=== PATIENT | female | born 1960 | race Caucasian/White ===

== ENCOUNTER 2016-06-08 19:34 | Emergency (ER) | payer BC ==
[2016-06-08 20:09] VITALS: BMI 26.2
[2016-06-08] MEDS ORDERED: NS 1,000 ML IV ONE ×2 (20:32→21:30)
[2016-06-08] MEDS ORDERED: ONDANSETRON HCL 4 MG/2 ML VIAL IV ONE (20:32)
--- NOTE | 2016-06-08 20:32 | EDPRACDOC ---
- General Information Chief Complaint: Nausea,Vomiting,Diarrhea Stated Complaint: VOMITING Time Seen by Provider: 06/08/16 20:23 Information Source: Patient Mode Of Arrival: Car Home Medications: Home Medications Cyclobenzaprine HCl [Flexeril] 10 mg PO TID #21 tab 09/27/15 Ergocalciferol (Vitamin D2) [Vitamin D] 50,000 units PO We@0900 09/27/15 Prednisone [Deltasone, Orasone] 2 tabs PO DAILY #20 tab 09/27/15 Diazepam [Valium] 5 mg PO TID #15 tablet 10/05/15 Hydrocodone Bit/Acetaminophen [[place] 5-325 Tablet] 1 each PO Q4H #10 tab Ondansetron [Zofran Odt] 4 mg PO Q6H PRN #10 tab.rapdis 06/08/16 Promethazine [Phenergan] 25 mg PO Q8H PRN #15 tab 06/08/16 Allergies/Adverse Reactions: Allergies Allergy/AdvReac Type Severity Reaction Status Date / Time No Known Allergies Allergy Verified 10/05/15 13:09 - History of Present Illness Onset: this morning HPI: N/V UPPER ABD PAIN SINCE THIS AM. SICK WITH URI SYMPTOMS X 2 WEEKS. CONSTANTLY VOMITING TODAY. NO FEVER. SOME LOWER BACK PAIN ONGOING FOR WEEKS SINCE THE COUGH. VOMITING GETS WORSE WITH SITTING UP. : No ED Past Medical History - History Reviewed Yes Nurses notes reviewed and agree except as marked - Patient Medical History Surgical History: Reports: Appendectomy - Social Medical History Smoking Status: Never smoker EDM Review of Systems - Review of Systems ROS Negative Except as Marked: Yes All systems reviewed and were negative except as marked Constitutional: Weakness Eyes: No Symptoms Reported Respiratory: Cough Cardiovascular: No Symptoms Reported Gastrointestinal: Nausea, Pain, Vomiting Genitourinary: No Symptoms Reported Neurological: No Symptoms Reported - Physical Exam Constitutional: Alert (Awake), No apparent distress Oriented to: Time, Person, Place Last recorded Vital Signs: Last Vital Signs Temp 97.8 F 06/08/16 20:06 Pulse 101 06/08/16 20:06 Resp 18 06/08/16 20:06 BP 132/65 06/08/16 20:06 Pulse Ox 97 06/08/16 20:06 Oxygen Pulse Oxygen Saturation 97 O2 Device Oxygen Flow Rate Fraction of Inspired Oxygen ( FIO2) - HEENT Head: Normal ( normocephalic) Eye Exam: Normal (PERRL, EOMI, Sclera white) Oropharynx: Normal (Pharynx:Moist without exudate,Gums-no swelling) Nose: No Symptoms Reported (septum midline) Neck: Normal (FROM, trachea at midline) - Respiratory/Cardiovascular Respiratory: Normal - CTA (BBS clear to auscultation without adventitious sounds ) Cardiovascular: Normal (RRR without murmur, gallop or rub) - GI Auscultation: Normal (NABS) Palpation: Normal (Soft,No rebound or guarding, non distended) Tenderness: Non tender Dowd's Sign: Negative - Musculoskeletal Back: Normal (Non-Tender) Extremities: Normal (Normal tone, Pulses 2+ No cyanosis or edema, FROM) - Integumentary Skin: Normal, Warm, Dry Lymphatics: Normal (no adenopathy) - Neurologic Memory Impaired: Normal Motor Function: Normal (Normal tone, Pulses 2+ No cyanosis or edema, FROM) Cranial Nerve: Normal (CN II-X11 intact sensation, strength 5/5) Cerebellar: Normal Mood Description: Normal Perception: Normal - Results 06/08/16 20:15 06/08/16 20:15 - EKG EKG #1 EKG Time: 20:38 -: Yes EKG interpreted by me Rate: bpm: 80 [place]: Normal Rhythm: NSR Block: None Hypertrophy: None ST: Normal Comments: NORMAL EKG Decision Time to Discharge: 21:45 - Departure Yes I personally saw and evaluated the patient. Disposition: Home Condition: Stable Final Diagnosis: Nausea and vomiting, Dehydration Instructions: Acute Nausea and Vomiting (ED) Education/Counseling Given To: Patient Education/Counseling Given Regarding: Diagnosis Referrals: None,No Provider [Primary Care Provider] - One Week Prescriptions: Ondansetron [Zofran Odt] 4 mg PO Q6H PRN #10 tab.rapdis PRN Reason: Nausea/Vomiting Promethazine [Phenergan] 25 mg PO Q8H PRN #15 tab PRN Reason: Nausea/Vomiting
[2016-06-08 20:33] LABS: MPV 8.8 fL (7.4-10.4)
[2016-06-08 20:37] LABS: BLOOD UREA NITROGEN 27 MG/DL (7-17); CALCIUM 9.7 MG/DL (8.4-10.2); CALCULATED OSMOLALITY 277 MOs/Kg (270-290); CHLORIDE 103 mEq/L (98-107); GLUCOSE 146 MG/DL (70-99); SODIUM LEVEL 140 mEq/L (137-146); TOTAL PROTEIN 8.1 G/DL (6.3-8.2)
[2016-06-08 20:44] LABS: AMORPHOUS OCC; LEUKOCYTES/URINE NEG (NEGATIVE); NITRITE/URINE NEG (NEGATIVE); URINE OCCULT BLOOD NEG (NEG/TRACE); WBC/URINE 0-2 (0-5)
[2016-06-08 21:09] LABS: SEG NEUTROPHIL 91 % (45-76)
--- NOTE | 2016-06-08 21:38 | DIRPT ---
CLINICAL DATA: Patient with vomiting. Back pain. EXAM: LUMBAR SPINE - COMPLETE 4+ VIEW COMPARISON: Lumbar spine CT 10/05/2015 FINDINGS: Normal anatomic alignment. No evidence for acute fracture or dislocation. Preservation of the vertebral body and intervertebral disc space heights. SI joints are unremarkable. IMPRESSION: No acute osseous abnormality. Electronically Signed By: Blaise Garcia M.D. On: 06/08/2016 21:35
--- NOTE | 2016-06-08 21:39 | DIRPT ---
CLINICAL DATA: Patient with cough. Vomiting and diarrhea. EXAM: CHEST 2 VIEW COMPARISON: Chest radiograph 02/21/2009. FINDINGS: Monitoring leads overlie the patient. Stable cardiac and mediastinal contours. No consolidative pulmonary opacities. No pleural effusion or pneumothorax. Regional skeleton is unremarkable. IMPRESSION: No active cardiopulmonary disease. Electronically Signed By: Blaise Garcia M.D. On: 06/08/2016 21:36
[2016-06-08 22:26] VITALS: BP 110/57; PULSE 78; TEMP 98.6
== END 2016-06-08 22:25 | disposition home or self-care (01) ==
LOC: ED 19:34
DX: E86.0 Dehydration (principal); R11.2 Nausea with vomiting, unspecified
CPT/HCPCS: 36415; 71020; 72110; 80053; 81001; 82150; 83690; 85007; 85027; 93005; 96361; 96374; 99284; J2405